=== PATIENT | male | born 1950 | race Caucasian/White ===

== ENCOUNTER 2016-08-26 10:15 | Outpatient (CLI) | payer MEDICARE, MEDICAID ==
--- NOTE | 2016-08-26 10:47 | Diagnostic Imaging Report ---
Indication: COUGH Technique: PA and lateral views of the chest. Findings: Comparison: None Thoracolumbar spine demonstrate significant kyphoscoliosis with multilevel disc marginal osteophyte formation, multilevel grade 1 spondylolisthesis, fusion hardware and multiple lumbar intervertebral disc spaces. Additional fusion hardware overlies the lower cervical spine. Aortic arch mildly calcified and elongated. The Extra pulmonary soft tissues, remainder of the cardiomediastinal silhouette, pulmonary vasculature and parenchyma, and pleural surfaces are unremarkable. IMPRESSION: No evidence of acute cardiopulmonary disease Aortosclerosis and probable chronic hypertensive change Previous cervical and lumbar fusions Degenerative spondylosis and kyphoscoliosis
== END 2016-08-26 11:30 | disposition home or self-care (01) ==
LOC: RAD 10:15
DX: R05 Cough (principal); I70.0 Atherosclerosis of aorta; M47.895 Other spondylosis, thoracolumbar region; M41.9 Scoliosis, unspecified
CPT/HCPCS: 71020